=== PATIENT | male | born 1970 | race Caucasian/White ===

== ENCOUNTER 2024-01-29 12:36 | Outpatient (CLI) | payer OTHER, SELFPAY ==
--- NOTE | 2024-01-29 13:00 | CRLHL7_ITS ---
For Patients: As a result of the Century Cures Act, medical imaging exams and procedure reports are released immediately into your electronic medical record. You may view this report before your referring provider. If you have questions, please contact your health care provider. EXAM: MRI OF THE RIGHT SHOULDER WITHOUT CONTRAST CLINICAL INDICATION: Right shoulder pain. COMPARISON PLAIN FILMS: 01/11/2024. COMPARISON CROSS-SECTIONAL IMAGING STUDIES: None available at time of interpretation. TECHNICAL: Axial, sagittal oblique and coronal oblique T1, PD, PD FS and T2-weighted images. Shoulder surface coil. FINDINGS: ROTATOR CUFF TENDONS AND MUSCLES AND DELTOID: Supraspinatus: No tendinosis, tendon tearing, muscle atrophy or muscle edema. Infraspinatus: No tendinosis, tendon tearing, muscle atrophy or muscle edema. Subscapularis: No tendinosis, tendon tearing, muscle atrophy or muscle edema. Teres Minor: No tendinosis, tendon tearing, muscle atrophy or muscle edema. Deltoid: No muscle atrophy or edema. BURSA: Subacromial-subdeltoid: No abnormal bursal edema, thickening or bursal fluid. BICEPS TENDON, LONG HEAD: The long head of the biceps tendon is appropriately positioned within the bicipital groove without tendon subluxation or dislocation. The biceps lary mechanism is intact. The biceps anchor appears grossly intact. There is no significant tendinosis or tendon tearing. CORACOACROMIAL ARCH: Acromial Morphology: Type 1 acromial morphology. Mild lateral downsloping of the acromion. No significant subacromial spur. No os acromiale. Acromiohumeral Interval: Normal. Coracohumeral Interval: Normal. ACROMIOCLAVICULAR JOINT REGION: AC Joint: No significant arthrosis, inferior hypertrophy, joint space widening, findings of acute injury or AC joint capsulitis. Ligaments: The coracoclavicular ligaments are intact. GLENOHUMERAL JOINT: Joint space: Trace joint effusion. No synovitis. Humeral Head Articular Cartilage: No focal cartilage defect or underlying subchondral marrow changes. Glenoid Articular Cartilage: No focal cartilage defect or underlying subchondral marrow changes. Labrum and Capsule: Mild increased signal along the joint capsule axillary recess with thickening along the anterior inferior aspect of the glenoid periosteum. Differential considerations include adhesive capsulitis, hydroxyapatite deposition capsulitis or sequela from dislocation. Clinical correlation recommended. No labral tear or paralabral cyst. Alignment: Maintained. OSSEOUS STRUCTURES: No fracture or contusion in the posterior superior humeral head or glenoid. No additional fracture or contusion. No osseous lesion. OTHER FINDINGS: There is no abnormality within the suprascapular or spinoglenoid notches nor within the quadrilateral space. No axillary adenopathy or mass. IMPRESSION: 1. Increased signal and thickening of the joint capsule axillary recess and thickening of the anterior inferior glenoid periosteum. Differential considerations include adhesive capsulitis, hydroxyapatite deposition capsulitis or sequela from dislocation. Clinical correlation recommended. 2. The rotator cuff and labrum are intact. 3. Trace glenohumeral joint effusion. 4. Mild lateral downsloping of the acromion. Dictated by Alec Kim MD @ 01/29/2024 1:55:28 PM (Electronically Signed)
== END 2024-01-29 12:37 | disposition home or self-care (01) ==
PROVIDERS: PCP Family Medicine; Visit Provider Family Medicine
DX: M25.511 Pain in right shoulder (principal); M25.411 Effusion, right shoulder
CPT/HCPCS: 73221

== ENCOUNTER 2024-06-24 18:57 | Outpatient (CLI) | payer OTHER, SELFPAY | END 2024-06-24 18:58 | disposition home or self-care (01) | PROVIDERS: PCP Family Medicine; Visit Provider Family Medicine | DX: E78.00 Pure hypercholesterolemia, unspecified (principal); E11.9 Type 2 diabetes mellitus without complications; Z79.84 Long term (current) use of oral hypoglycemic drugs; Z12.5 Encounter for screening for malignant neoplasm of prostate | CPT/HCPCS: 80053; 82043; 82570; G0103 ==

== ENCOUNTER 2024-07-03 09:56 | Outpatient (CLI) | payer OTHER, SELFPAY | END 2024-07-03 09:57 | disposition home or self-care (01) | LOC: NFLDREF 07-16 23:07 | PROVIDERS: PCP Family Medicine; Referring Provider Family Medicine; Visit Provider Emergency Medicine | DX: R82.90 Unspecified abnormal findings in urine (principal); R10.9 Unspecified abdominal pain; R05.1 Acute cough | CPT/HCPCS: 87086 ==

== ENCOUNTER 2024-12-19 13:11 | Outpatient (CLI) | payer OTHER, SELFPAY | END 2024-12-19 13:12 | disposition home or self-care (01) | LOC: NFLDREF 12-24 01:30 | PROVIDERS: PCP Family Medicine; Referring Provider Family Medicine; Visit Provider Family Medicine | DX: E78.00 Pure hypercholesterolemia, unspecified (principal); E11.9 Type 2 diabetes mellitus without complications | CPT/HCPCS: 80061 ==

== ENCOUNTER 2025-01-27 15:00 | Outpatient (CLI) | payer OTHER, SELFPAY | END 2025-01-27 15:01 | disposition home or self-care (01) | PROVIDERS: PCP Family Medicine; Referring Provider Family Medicine; Visit Provider Family Medicine | DX: I10 Essential (primary) hypertension (principal); E11.9 Type 2 diabetes mellitus without complications | CPT/HCPCS: 80048; G0103 ==